=== PATIENT | male | born 2000 | race African-American/Black ===

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

== ENCOUNTER 2021-11-16 16:05 | Inpatient (IN) | payer BC, MEDICAID ==
--- NOTE | 2021-11-16 18:13 | ED ---
Psych HPI - General Chief Complaint: Psychiatric Symptoms Stated Complaint: petition Time Seen by Provider: 11/16/21 17:27 Source: patient, family, police Mode of arrival: ambulatory - History of Present Illness Initial Comments: Patient is a 20-year-old male who presents to the emergency department for psychiatric evaluation. Patient was brought in by his family who do not feel he is acting normal. Patient states for the past few days patient has not been sleeping at night. He has had scattered thoughts and has been more paranoid than normal. Patient denies depression or anxiety. Patient denies suicidal or homicidal ideation. Denies visual and auditory hallucinations. Denies alcohol and drug use. Denies prior history of mental health diagnoses. - Related Data Home Medications Medication Instructions Recorded Confirmed No Known Home Medications 11/16/21 11/17/21 Allergies Allergy/AdvReac Type Severity Reaction Status Date / Time No Known Allergies Allergy Verified 11/17/21 02:36 Review of Systems ROS Statement: Those systems with pertinent positive or pertinent negative responses have been documented in the HPI. ROS Other: All systems not noted in ROS Statement are negative. Past Medical History Past Medical History: No Reported History History of Any Multi-Drug Resistant Organisms: None Reported Past Surgical History: No Surgical Hx Reported Past Psychological History: No Psychological Hx Reported Smoking Status: Current every day smoker Past Alcohol Use History: Occasional Past Drug Use History: Marijuana General Exam Limitations: no limitations General appearance: alert, in no apparent distress Head exam: Present: atraumatic, normocephalic, normal inspection Eye exam: Present: normal appearance, PERRL, EOMI. Absent: scleral icterus, conjunctival injection, periorbital swelling Neck exam: Present: normal inspection. Absent: tenderness, meningismus, lymphadenopathy Respiratory exam: Present: normal lung sounds bilaterally. Absent: respiratory distress, wheezes, rales, rhonchi, stridor Cardiovascular Exam: Present: regular rate, normal rhythm, normal heart sounds. Absent: systolic murmur, diastolic murmur, rubs, gallop, clicks Neurological exam: Present: alert, oriented X3, CN II-XII intact Psychiatric exam: Present: normal affect, normal mood. Absent: flat affect, manic, homicidal ideation, suicidal ideation Skin exam: Present: warm, dry, intact, normal color. Absent: rash Course Vital Signs 07/20/22 07/21/22 16:09 02:57 Temperature 98.8 F Pulse Rate 85 73 Respiratory 20 16 Rate Blood Pressure 159/88 139/78 O2 Sat by Pulse 99 99 Oximetry Medical Decision Making - Medical Decision Making This is a 20-year-old male who presents for psych evaluation. Thorough history and examination were performed. Patient is well-appearing. His family does describe a manic state however patient does not appear manic during my exam. Alcohol breathalyzer is 0. Patient is cleared from a medical standpoint can be evaluated by emergency psychiatric services. Patient admitted to psychiatric floor on 11/17/21. Dr. Sandoval is my attending. - Lab Data Lab Results 11/16/21 11/16/21 11/16/21 Range/Units 18:30 18:30 23:54 Urine Color Brown Urine Appearance Turbid (Clear) Urine pH 6.5 (5.0-8.0) Ur Specific [place] 1.039 H (1.001-1.035) Urine Protein 2+ H (Negative) Urine Glucose (UA) Negative (Negative) Urine Ketones 3+ H (Negative) Urine Blood Negative (Negative) Urine Nitrite Negative (Negative) Urine Bilirubin Negative (Negative) Urine Urobilinogen 4.0 (<2.0) mg/dL Ur Leukocyte Esterase Negative (Negative) Urine WBC 7 H (0-5) /hpf Amorphous Sediment Rare H (None) /hpf Urine Bacteria Few H (None) /hpf Urine Mucus Many H (None) /hpf Urine Opiates Screen Not Detected (NotDetected) Ur Oxycodone Screen Not Detected (NotDetected) Urine Methadone Screen Not Detected (NotDetected) Ur Propoxyphene Screen Not Detected (NotDetected) Ur Barbiturates Screen Not Detected (NotDetected) U Tricyclic Antidepress Not Detected (NotDetected) Ur Phencyclidine Scrn Not Detected (NotDetected) Ur Amphetamines Screen Not Detected (NotDetected) U Methamphetamines Scrn Not Detected (NotDetected) U Benzodiazepines Scrn Not Detected (NotDetected) Urine Cocaine Screen Not Detected (NotDetected) U Marijuana (THC) Screen Detected H (NotDetected) Coronavirus (PCR) Not Detected (Not Detectd) Disposition Clinical Impression: Paranoia, Behavior concern Disposition: ADMITTED IP TO THIS [facility] Condition: Good Decision Time: 16:24
[2021-11-16 18:54] LABS: Amphetamine Screen,Urine Not Detected (NotDetected); Barbiturate Screen,Urine Not Detected (NotDetected); Benzodiazepines Screen,Urine Not Detected (NotDetected); Cocaine Screen,Urine Not Detected (NotDetected); Methadone Screen, Urine Not Detected (NotDetected); Opiate Screen,Urine Not Detected (NotDetected); Oxycodone Screen, Urine Not Detected (NotDetected); Phencyclidine Screen,Urine Not Detected (NotDetected); Tricyclic Antidepressant,Urine Not Detected (NotDetected); Urn Cannabinoid Scrn Detected (NotDetected)
[2021-11-17] MEDS ORDERED: ACETAMINOPHEN TAB 325 MG TAB PO PRN (01:47)
[2021-11-17] MEDS ORDERED: MAGNESIUM HYDROXIDE 2,400 MG/10 ML CUP PO PRN (01:47)
[2021-11-17] MEDS ORDERED: MAG HYDROX/AL HYDROX/SIMETH 30 ML CUP PO PRN (01:47)
[2021-11-17] MEDS ORDERED: ZIPRASIDONE 20 MG VIAL IM STA (01:50)
[2021-11-17] MEDS ORDERED: hydrOXYzine HCL 50 MG/ML 1 ML VIAL IM PRN (01:50)
[2021-11-17] MEDS ORDERED: LORazepam 2 MG/ML INJ IM STA (01:50)
[2021-11-17] MEDS ORDERED: OLANZapine 10 MG VIAL IM PRN (01:51)
[2021-11-17] MEDS ORDERED: OLANZapine 5 MG TAB PO PRN (01:51)
[2021-11-17] MEDS ORDERED: LORazepam 1 MG/0.5 ML VIAL IM STA (01:56)
[2021-11-17 03:35] LABS: Amorphous Sediment,Urine Rare /hpf; Appearance,Urine Turbid (Clear); Bacteria,Urine Few /hpf; Bilirubin,Urine Negative (Negative); Blood,Urine Negative (Negative); Color,Urine Orange; Glucose,Urine (UA) Negative (Negative); Ketones,Urine 3+ (Negative); Leukocyte Esterase,Urine Negative (Negative); Mucus,Urine Many /hpf; Nitrite,Urine Negative (Negative); PH, Urine 6.5 (5.0-8.0); Protein,Urine 2+ (Negative); Specific Gravity,Urine 1.039 (1.001-1.035); WBC,Urine 7 /hpf (0-5)
[2021-11-17] MEDS ORDERED: NICOTINE 14MG/24HR PATCH TRANSDERM SCH (09:00)
[2021-11-17] MEDS ORDERED: ARIPiprazole 10 MG TAB PO STA (11:31)
--- NOTE | 2021-11-17 14:01 | P.HP ---
Psychiatric H&P - . H&P Date: 11/17/21 History & Physical: Allergies Allergy/AdvReac Type Severity Reaction Status Date / Time No Known Allergies Allergy Verified 11/17/21 02:36 Vital Signs Temp 97.6 F 11/17/21 03:30 Pulse 64 11/17/21 03:30 Resp 14 11/17/21 03:30 BP 94/47 11/17/21 03:30 Pulse Ox 97 11/17/21 03:30 FiO2 Intake & Output 11/16/21 11/17/21 11/17/21 18:59 06:59 18:59 Weight 95.254 kg Laboratory Last Values Urine Color [place] 11/16/21 18:30 Urine Appearance Turbid (Clear) 11/16/21 18:30 Urine pH 6.5 (5.0-8.0) 11/16/21 18:30 Ur Specific [place] 1.039 (1.001-1.035) H 11/16/21 18:30 Urine Protein 2+ (Negative) H 11/16/21 18:30 Urine Glucose (UA) Negative (Negative) 11/16/21 18:30 Urine Ketones 3+ (Negative) H 11/16/21 18:30 Urine Blood Negative (Negative) 11/16/21 18:30 Urine Nitrite Negative (Negative) 11/16/21 18:30 Urine Bilirubin Negative (Negative) 11/16/21 18:30 Urine Urobilinogen 4.0 mg/dL (<2.0) 11/16/21 18:30 Ur Leukocyte Esterase Negative (Negative) 11/16/21 18:30 Urine WBC 7 /hpf (0-5) H 11/16/21 18:30 Amorphous Sediment Rare /hpf (None) H 11/16/21 18:30 Urine Bacteria Few /hpf (None) H 11/16/21 18:30 Urine Mucus Many /hpf (None) H 11/16/21 18:30 Urine Opiates Screen Not Detected (NotDetected) 11/16/21 18:30 Ur Oxycodone Screen Not Detected (NotDetected) 11/16/21 18:30 Urine Methadone Screen Not Detected (NotDetected) 11/16/21 18:30 Ur Propoxyphene Screen Not Detected (NotDetected) 11/16/21 18:30 Ur Barbiturates Screen Not Detected (NotDetected) 11/16/21 18:30 U Tricyclic Antidepress Not Detected (NotDetected) 11/16/21 18:30 Ur Phencyclidine Scrn Not Detected (NotDetected) 11/16/21 18:30 Ur Amphetamines Screen Not Detected (NotDetected) 11/16/21 18:30 U Methamphetamines Scrn Not Detected (NotDetected) 11/16/21 18:30 U Benzodiazepines Scrn Not Detected (NotDetected) 11/16/21 18:30 Urine Cocaine Screen Not Detected (NotDetected) 11/16/21 18:30 U Marijuana (THC) Screen Detected (NotDetected) H 11/16/21 18:30 Coronavirus (PCR) Not Detected (Not Detectd) 11/16/21 23:54 11/17/21 14:01 IDENTIFYING DATA: Patient is a single, employed, 20-year-old -[place] male who presents to the hospital for acute psychosis. HPI: Patient presented to the hospital on 11/16/2021, brought into the hospital under petition for an acute change in behaviors and psychotic symptoms. As per petition filled out by his mother, the patient appeared to be grossly disorganized and increasingly paranoid. Collateral information was obtained by his mother who reports that the patient had an acute change in behavior over the last 5 days. The patient has been primarily concerned with his mother cheating on his father with his embroidery supervisor at work. He also believes that his embroidery supervisor at work as well as other coworkers have been attempting to "set him up." The patient does report that he has been receiving special messages from television and the radio. However, the patient is denying any auditory or visual hallucinations. The patient expresses that he began feeling "off" after smoking marijuana and drinking with his friends approximately 3 days ago. The patient did require IM Geodon due to agitation prior to transferring him from the emergency department to the psychiatric unit. In regards to mood symptoms, the patient is not reporting any significant symptoms of depression or anxiety at this time. He is denying any suicidal or homicidal ideation, intention, and/or plan. He does report that he has not been sleeping well over the last 4-5 days and this is confirmed by his mother. However, the patient denies any history of manic episodes. The patient's mother also reports that this the first time the patient has displayed psychotic symptoms. The patient does report significant substance abuse. He states that he has been drinking and smoking marijuana at least 3-4 times per week. He reports that he does so to the point of intoxication. He denies any tobacco use. He reports no other drug use. PAST PSYCHIATRIC HISTORY: Patient states that he has not been previously diagnosed with any mental illness. Patient denies being on any psychiatric medications. Patient denies any previous psychiatric hospitalizations. Patient denies any psychiatric outpatient follow-up. Patient denies any history of suicide attempts in the past. PMH: Past Medical History: No Reported History History of Any Multi-Drug Resistant Organisms: None Reported Past Surgical History: No Surgical Hx Reported Past Psychological History: No Psychological Hx Reported Smoking Status: Current every day smoker - Patient denies Past Alcohol Use History: Occasional Past Drug Use History: Marijuana ALLERGIES: NO KNOWN DRUG ALLERGIES CHEMICAL DEPENDENCY HISTORY: As per HPI FAMILY PSYCHIATRIC/SUBSTANCE USE HISTORY: The patient's mother reports that the family has a significant history of multiple members with schizophrenia and bipolar disorder. SOCIAL HISTORY: Patient was born in [place] and raised in [place]. The patient currently lives with his mother, brother, and father. 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 His hobbies and interests include basketball. He reports some college education. He denies any legal issues. MENTAL STATUS EXAM: General Appearance: Patient appears to be stated age is alert, directable, and attempts to cooperate. Patient appears to have fair hygiene and grooming. Behavior: Patient is seated without any agitated behavior. Eye contact is appropriate. Speech: Patient's speech is fluent and nonpressured. Monotone. Mood/Affect: Patient reports their mood is feeling okay, affect is congruent and constricted. Suicidality/Homicidality: Patient denies any suicidal or homicidal ideation, intention, and/or plan. Perceptions: Patient denies any visual hallucinations and denies any auditory hallucinations Though content/process: The patient reports some paranoia. Thought process a ppears to be more linear and logical today as compared to what has been reported. Memory and concentration: AOX3, grossly intact for the purposes of this session. Can spell "WORLD" backwards Judgment and insight: Fair STRENGTHS/WEAKNESSES: Strength is that the patient is gainfully employed, has no significant psychiatric history, and a supportive family. Weakness is that the patient engages in heavy marijuana use. INTELLECT: average IMPRESSIONS: Brief psychotic episode - suspect secondary to cannabis use Cannabis use disorder Alcohol use disorder PLAN: -Patient is admitted under voluntary status to [facility]HU for stabilization of psychiatric symptoms and safety. Patient signed adult voluntary form and medication consent and is placed in patient's chart. -Medications : Will start patient on Abilify 10 mg by mouth daily for psychosis. Plan is to titrate to 15 mg tomorrow. -Vistaril and Zyprexa PRN for agitation/aggression -Patient was counselled on substance abuse and desired to cut back on use -Patient was informed of the risks, benefits and side effects of the medication and patient verbally consented to taking the medications. Patient signed med consent form and was placed in chart. -Internal Medicine consult to perform medical evaluation and physical. -SW on board for discharge planning. Encourage patient to participate in groups to work on coping skills. 11/17/21 14:01
[2021-11-17] MEDS: MELATONIN 5 MG TABLET PO SCH (21:22)
[2021-11-18] MEDS ORDERED: ARIPiprazole 15 MG TAB PO SCH (09:00)
--- NOTE | 2021-11-18 14:05 | P.PN ---
Progress Note - Text Progress Note Date: 11/18/21 Interval History: Patient was seen wandering the hallways and was directable and agreeable to speak with property underwriter in the office. The patient continues to endorse significant symptoms of paranoia. He does report a belief that others on the unit have been plotting against him. He also displays poor insight and judgment regarding the events leading up to this hospitalization. He firmly believes that he hasn't been psychotic and that if "you knew my family, you would understand why I am here." The patient was reminded that he initially presented to the emergency Department with significant thought blocking, gross disorganization, and paranoia. The patient is inquiring if melatonin alone can be used instead of any antipsychotic medication. He was encouraged to take antipsychotic medication so that the reasons for his admission are addressed. The patient is agreeable at this time. Mental Status Exam: General Appearance: Patient appears to be stated age is alert, directable, and cooperative. Behavior: Patient is calmly seated without any agitated behavior. Speech: Patient's speech is fluent and nonpressured. Mood/Affect: Mood is "feeling better," affect is somewhat guarded and suspicious. Suicidality/Homicidality: Patient denies having any suicidal or homicidal ideation intent or plan. Perceptions: Patient denies any visual hallucinations and denies any auditory hallucinations Though content/process: The patient does endorse some paranoia. Memory and concentration: The patient appears to have poor memory of the events leading up to this hospitalization. Judgment and insight: Poor Vital Signs Temp 98.1 F 11/18/21 07:04 Pulse 107 H 11/18/21 07:04 Resp 18 11/18/21 07:04 BP 188/94 11/18/21 07:04 Pulse Ox 99 11/18/21 07:04 FiO2 Intake & Output 11/17/21 11/18/21 11/18/21 18:59 06:59 18:59 Weight 87.997 kg Assessment Brief psychotic episode - suspect secondary to cannabis use Cannabis use disorder Alcohol use disorder Plan: -Patient continues to meet criteria for inpatient psychiatric admission for symptom stabilization and safety. Patient has signed adult voluntary form and medication consent and was placed in patient's chart. If the patient continues to refuse medications and worsening psychiatric symptoms, we may have to consider petition and recertification. -Medications: Change Abilify to 10 mg by mouth at bedtime for psychosis Continue melatonin 10 mg by mouth at bedtime for insomnia -When necessary Ativan and Geodon for agitation/aggression. -SW on board for discharge planning. Encouraged the patient to participate in milieu.
--- NOTE | 2021-11-18 17:24 | P.MDCNMH ---
History of Present Illness H&P Date: 11/17/21 Chief Complaint: Abnormal behavior Patient is a 20-year-old male without significant past medical history except everyday smoker and marijuana use was brought to the hospital for psychiatric Abely psychiatric evaluation. Psychiatric evaluation. Patient was brought to hospital by his family as he do not feel normal and has not been sleeping at night. Patient has been having paranoid and tangential thoughts. Otherwise denied any suicidal or suicidal ideation. No complaints of chest pain or shortness of air. No fever no chest pain denied any recent illnesses. No nausea vomiting abdominal pain or diarrhea. Denies any dysuria or hematuria. No cough or sputum production. Patient does smoke on daily basis and use marijuana 3 times in a week. Laboratory data not available. UDS is positive for marijuana. Coronavirus PCR not detected. Urinalysis showed increased specific gravity and 2+ protein and 3+ ketones and leukocyte esterase negative. Review of Systems Constitutional: Patient denies any fever or chills . No generalized weakness or weight loss. Abdomen: Patient denied nausea vomiting and diarrhea and abdominal pain. Cardiovascular: Patient denies any chest pain or short of breath no palpitations. Respiratory: patient denied any cough is from production. No shortness of breath Neurologic: Patient denied any numbness or tingling headache. Musculoskeletal: Patient denies any complaints of joint swelling or deformity. Skin: Negative Psychiatric: Negative Endocrine: No heat or cold intolerance. No recent weight gain. Genitourinary: No dysuria or hematuria. All other 14 point ROS negative except the above Past Medical History Past Medical History: No Reported History History of Any Multi-Drug Resistant Organisms: None Reported Past Surgical History: No Surgical Hx Reported Past Psychological History: No Psychological Hx Reported Smoking Status: Current every day smoker Past Alcohol Use History: Occasional Past Drug Use History: Marijuana Medications and Allergies Home Medications Medication Instructions Recorded Confirmed Type No Known Home Medications 11/16/21 11/17/21 History Allergies Allergy/AdvReac Type Severity Reaction Status Date / Time No Known Allergies Allergy Verified 11/17/21 02:36 Physical Exam Vitals: Vital Signs Temp Pulse Pulse Resp BP BP Pulse Ox 11/17/21 03:30 97.6 F 64 14 94/47 97 11/17/21 02:57 73 16 139/78 99 11/16/21 16:09 98.8 F 85 20 159/88 99 Intake and Output 07/11/17/21 11/17/21 22:59 06:59 14:59 Other: Weight 95.254 kg PHYSICAL EXAMINATION: Patient is lying in the bed comfortably, no acute distress, awake alert and oriented.. HEENT: Normocephalic. Neck is supple. Pupils reactive. Nostrils clear. Oral cavity is moist. Neck reveals no JVD, carotid bruits, or thyromegaly. CHEST EXAMINATION: Trachea is central. Symmetrical expansion. Lung sadler clear to auscultation and percussion. CARDIAC: Normal S1, S2 with no gallops. No murmurs ABDOMEN: Soft. Bowel sounds normal. No organomegaly. No abdominal bruits. Extremities: reveal no edema. No clubbing or cyanosis Neurologically awake, alert, oriented x3 with well-coordinated movements. No focal deficits noted Skin: No rash or skin lesions. Psychiatric: Coperative. Nonsuicidal Musculoskeletal: No joint swelling or deformity. Normal range of motion. Cranial Nerve Examination - Cranial Nerves Cranial Nerve I- Olfactory: Intact Cranial Nerve II- Optic: Intact Cranial Nerve III- Oculomotor: Intact Cranial Nerve IV- Trochlear: Intact Cranial Nerve V- Trigeminal: Intact Cranial Nerve - Abducens: Intact Cranial Nerve VII- Facial: Intact Cranial Nerve VIII- Auditory: Intact Cranial Nerve IX- Glossopharyngeal: Intact Cranial Nerve X- Vagus: Intact Cranial Nerve XI- Accessory: Intact Cranial Nerve XII- Hypoglossal: Intact Results Labs: Abnormal Lab Results - Last 24 Hours (Table) 11/16/21 11/16/21 Range/Units 18:30 18:30 Ur Specific [place] 1.039 H (1.001-1.035) Urine Protein 2+ H (Negative) Urine Ketones 3+ H (Negative) Urine WBC 7 H (0-5) /hpf Amorphous Sediment Rare H (None) /hpf Urine Bacteria Few H (None) /hpf Urine Mucus Many H (None) /hpf U Marijuana (THC) Screen Detected H (NotDetected) Assessment and Plan Assessment: Acute psychosis and paranoid behavior. Ongoing nicotine addiction. Marijuana use 2+ protein in the urine DVT prophylaxis early ambulation Plan: Patient will be continued on current psychiatric management and plan. We will follow-up CBC and CMP and lipid profile. Will need repeat urinalysis and follow-up with primary care physician due to proteinuria. Encourage oral intake. Further recommendations based on clinical course. Thank you for your consult. Time with Patient: Greater than 30
[2021-11-18] MEDS: ARIPiprazole 10 MG TAB PO SCH (20:57)
[2021-11-18] MEDS: MELATONIN 5 MG TABLET PO SCH (20:57)
[2021-11-19] MEDS ORDERED: ARIPiprazole 15 MG TAB PO SCH (09:00)
[2021-11-19 09:22] LABS: Basophils # (A) 0.1 k/uL (0-0.2); Basophils % (A) 1 %; Eosinophils # (A) 0.1 k/uL (0-0.7); Eosinophils % (A) 1 %; HGB 15.3 gm/dL (13.0-17.5); Lymphocytes # (A) 2.9 k/uL (1.0-4.8); Lymphocytes % (A) 29 %; MCH 28.3 pg (25.0-35.0); MCHC 30.6 g/dL (31.0-37.0); MCV 92.4 fL (80.0-100.0); Mean Platelet Volume 7.1; Monocytes # (A) 0.5 k/uL (0-1.0); Monocytes % (A) 5 %; Neutrophils # (A) 6.3 k/uL (1.3-7.7); Neutrophils % (A) 64 %; Platelet Count 274 k/uL (150-450); RBC 5.41 m/uL (4.30-5.90); RDW 13.1 % (11.5-15.5); WBC 9.9 k/uL (4.0-11.0)
[2021-11-19 09:41] LABS: ALT 23 U/L (4-49); AST 64 U/L (17-59); African American GFR (CKD) >90 (>60 ml/min/1.73 sqM); Alkaline Phosphatase 89 U/L (38-126); Anion Gap 9 mmol/L; Bilirubin, Delta 0.1 mg/dL (0.0-0.2); Bilirubin,Unconjugated 0.9 mg/dL (0.0-1.1); Blood Urea Nitrogen 10 mg/dL (9-20); Calcium 9.9 mg/dL (8.4-10.2); Carbon Dioxide 27 mmol/L (22-30); Chloride 106 mmol/L (98-107); Glucose 88 mg/dL (74-99); Non-African American GFR(CKD) >90 (>60 ml/min/1.73 sqM); Potassium 4.1 mmol/L (3.5-5.1); Sodium 142 mmol/L (137-145); Total Protein 8.1 g/dL (6.3-8.2)
--- NOTE | 2021-11-19 12:30 | P.PN ---
Progress Note - Text Progress Note Date: 11/19/21 Clinical Problems: Brief psychotic disorder, rule out cannabis induced psychotic disorder, rule out schizophreniform disorder, cannabis use disorder, all call use disorder Interim history: I reviewed the medical record and interviewed the patient. The patient only concern was discharge. He was unable to explain the reason for his hospitalization and did not understand the concerns his family had for his mental health. He had obvious difficulty organizing his thoughts but did not express clear grandiose or delusional beliefs. He complained of sedation following his first dose of Abilify but has been compliant with the medication. He is attending therapeutic groups and activities. He only slept 3 hours last night. He is posed no management problems had no episodes of behavioral dyscontrol. Mental status exam: He presented as a stocky and casually groomed - [place]yanese male who was pleasant on approach. He made eye contact and appeared to attend to the interview. He had no distinguishing features or prominent physical abnormalities. He had a flat facial expression. He was alert and oriented to person, place and time. He showed psychomotor retardation but no abnormal involuntary movements. His speech was not spontaneous and had decreased rate and volume. He had no articulation difficulties. He denied current suicidal ideation and wishes. He denied homicidal ideation. He denied feeling hopeless, helpless or worthless. He showed prominent poverty of thought and content of thought. He appeared guarded and suspicious but did not express clear paranoid, magical or delusional thoughts or beliefs. His thinking was very concrete but his associations appeared to be goal-directed. Assessment: He remains guarded, suspicious paranoid. He is moderately mentally ill and minimally improve from admission. Plan: Continue inpatient treatment. Safety precautions. Continue Abilify 10 mg daily. Olanzapine and or Vistaril IM or when necessary when necessary for agitation, anxiety acute psychosis. Encouraged continued participation in therapeutic groups and activities. Evaluate clinical status response to treatment daily basis.
[2021-11-19 17:24] LABS: Chol/HDL Ratio 2.65 Ratio; LDL Cholesterol,Calculated 87.9 mg/dL (0.0-131.0)
[2021-11-19] MEDS: MELATONIN 5 MG TABLET PO SCH (22:04)
[2021-11-19] MEDS: ARIPiprazole 10 MG TAB PO SCH (22:04)
--- NOTE | 2021-11-20 11:04 | P.PN ---
Progress Note - Text Progress Note Date: 11/20/21 Clinical Problems: Brief psychotic disorder, rule out cannabis induced psychotic disorder, rule out schizophreniform disorder, cannabis use disorder, all call use disorder Interim history: I reviewed the medical record and interviewed the patient. He is more talkative than on her initial encounter. He was struggling to understand the reason for this hospitalization. He vacillated between believing that his family were conspiring against him and believing that they were concerned for his well-being. He spoke more openly about the paranoia he experiences while he was in the community and his ongoing experiences of auditory hallucinations. After our encounter the psychiatry tech asked for order to not allow him to use pens. She stated that yesterday he was writing and scratching his arm with the pen. When she asked him why he is doing this he replied "the voices." He denied side effects to Abilify has been compliant with the prescribed dose. He has not been regularly attending therapeutic groups and activities. Again he only slept 3 hours last night. He has posed no management problems and had no episodes of behavioral dyscontrol. Mental status exam: He presented as a stocky and casually groomed - [place] male who was pleasant on approach. He made eye contact and appeared to attend to the interview. He had no distinguishing features or prominent physical abnormalities. He had a sad facial expression and cried intermittently during the interview. He was alert and oriented to person, place and time. He showed psychomotor retardation but no abnormal involuntary movements. His speech was spontaneous and had decreased rate and volume. He had no art iculation difficulties. He denied current suicidal ideation and wishes. He denied homicidal ideation. He denied feeling hopeless, helpless or worthless. He showed prominent poverty of thought and content of thought. He he was paranoid but did not express paranoid delusions. His thinking was very concrete but his associations appeared to be goal-directed. He denied auditory hallucinations during interview and did not appear to be responding to internal stimuli. Assessment: He remains guarded, suspicious paranoid. He is moderately mentally ill and minimally improve from admission. Plan: Continue inpatient treatment. Safety precautions. Continue Abilify 10 mg daily. Monitor his use of writing instruments. Olanzapine and or Vistaril IM or when necessary when necessary for agitation, anxiety acute psychosis. Encouraged continued participation in therapeutic groups and activities. Evaluate clinical status response to treatment daily basis.
[2021-11-20] MEDS: ARIPiprazole 10 MG TAB PO SCH ×2 (21:15→23:07)
[2021-11-20] MEDS: MELATONIN 5 MG TABLET PO SCH ×2 (21:15→23:07)
[2021-11-21] MEDS ORDERED: WATER FOR INJECTION, STERILE 10 ML IV ONE (05:38)
--- NOTE | 2021-11-21 06:35 | P.MHFACE ---
Face to Face Restrain/Seclus - Evaluation Patient's Immediate Situation: Violent behavior Patient's Reaction to the Intervention: Appropriate, Calm, Relaxed, Cooperative Patient's Medical & Behavioral Condition: Awake, Alert, Follows directions Patient's Medical & Behavioral Condition - Comment: denies any hallucination , denies suicidal or homicidal thoughts Need to Continue or Terminate Restraint or Seclusion: Terminate Face to Face Eval of Restraint Date: 11/21/21 Face to Face Eval of Restraint Time: 06:25
[2021-11-21] MEDS ORDERED: risperiDONE 1 MG TAB PO STA (10:22)
--- NOTE | 2021-11-21 12:32 | P.PN ---
Progress Note - Text Progress Note Date: 11/21/21 Interval History: Patient was seen wandering the hallways and was directable and agreeable to speak with designer writer in his room. Over the weekend, the patient has been refusing medications. Furthermore, the patient has been noted by staff to be increasingly paranoid, responding to internal stimuli, and episodes of agitation. Earlier this morning, at approximately 5 AM, the patient was continually asking for things and expressing a desire to leave. He began to threaten and stating that if he was not going to leave and 5 minutes, he would be very agitated. The patient was unable to be redirected and required the use of restraints and was administered Zyprexa and Vistaril. The patient responded to this and was able to calm down. Upon assessment after, the patient continues to state this provider that he has reasons for why he is in the hospital and that he has proof on his phone. He continues to endorse significant paranoia. However, the patient is agreeable to taking medications today. The patient was informed that if he is to refuse any further medications, that we will pursue a petition clinical certificate. Reportedly, the patient is also not welcome back to his home. Mental Status Exam: General Appearance: Patient appears to be stated age is alert, directable, and cooperative. Behavior: Patient is calmly seated without any agitated behavior. Speech: Patient's speech is fluent and nonpressured. Mood/Affect: Mood is "I feel like there is something going on," affect is somewhat guarded and suspicious. Suicidality/Homicidality: Patient denies having any suicidal or homicidal ideation intent or plan. Perceptions: Patient denies any visual hallucinations and denies any auditory hallucinations Though content/process: The patient does present with paranoia. Memory and concentration: Grossly intact for the purposes of this session. Judgment and insight: Poor Vital Signs Temp 97.9 F 11/21/21 05:55 Pulse 113 H 11/21/21 05:55 Resp 24 11/21/21 05:55 BP 165/71 11/21/21 05:55 Pulse Ox 99 11/20/21 04:40 FiO2 Intake & Output 11/20/21 11/21/21 11/21/21 18:59 06:59 18:59 Weight 88.6 kg Assessment Brief psychotic episode Cannabis use disorder Alcohol use disorder Plan: -Patient continues to meet criteria for inpatient psychiatric admission for symptom stabilization and safety. Patient has signed adult voluntary form and medication consent and was placed in patient's chart. If the patient refuses any medications, we will pursue a petition and clinical certification period -Medications: Start Risperdal 1 mg by mouth twice a day with plans to titrate tomorrow. Continue melatonin 10 mg by mouth at bedtime for insomnia -When necessary Ativan and Geodon for agitation/aggression. -SW on board for discharge planning. Encouraged the patient to participate in milieu.
[2021-11-21] MEDS: hydrOXYzine pamoate 25 MG CAP PO PRN (13:29)
[2021-11-21] MEDS: risperiDONE 1 MG TAB PO SCH (21:16)
[2021-11-21] MEDS: MELATONIN 5 MG TABLET PO SCH (21:16)
[2021-11-22] MEDS: risperiDONE 1 MG TAB PO SCH ×3 (08:16→22:02)
--- NOTE | 2021-11-22 13:05 | P.PN ---
Progress Note - Text Progress Note Date: 11/22/21 Interval History: Patient was seen wandering the hallways and was directable and agreeable to speak with the technical document writer in the office. The patient refused medications this morning. He maintains that he is "okay and ready to go home." He does continue to endorse significant paranoia, especially towards other peers. He reports that he believes that everyone is speaking about him or laughing at him. He continues to have poor insight into why he was admitted into the hospital in the first place. He reports that he has evidence as to why he is here on his phone. He reports that he would like to call 911 in order to report his mother. The patient was informed that he will be petitioned and certified as he has been nonadherent with treatment, displays limited insight, and also displayed violent behavior yesterday. Patient minimizes his agitation yesterday and reports that he is "ready to go home because I'm not angry anymore." Patient is in disagreement with this provider and does not believe he needs any further treatment. He denies any suicidal or homicidal ideation, intention, and/or plan. He is not reporting any auditory or visual hallucinations. Mental Status Exam: General Appearance: Patient appears to be stated age is alert, directable, and cooperative. Behavior: Patient is seated without any agitated behavior. Speech: Patient's speech is fluent and nonpressured. Mood/Affect: Mood is "I don't need to be here," affect is guarded and suspicio us. Suicidality/Homicidality: Patient denies having any suicidal or homicidal ideation intent or plan. Perceptions: Patient denies any visual hallucinations and denies any auditory hallucinations Though content/process: The patient does present with paranoia. Memory and concentration: Grossly intact for the purposes of this session. Judgment and insight: Poor Vital Signs Temp 98.2 F 11/22/21 07:11 Pulse 113 H 11/22/21 07:11 Resp 24 11/21/21 05:55 BP 185/95 11/22/21 07:11 Pulse Ox 99 11/20/21 04:40 FiO2 Assessment Brief psychotic episode Cannabis use disorder Alcohol use disorder Plan: -Patient continues to meet criteria for inpatient psychiatric admission for symptom stabilization and safety. Patient has signed adult voluntary form and medication consent and was placed in patient's chart. -We will pursue a petition and clinical certification due to nonadherence with treatment. -Medications: Continue risperdal 1 mg twice daily for psychosis. Continue melatonin 10 mg by mouth at bedtime for insomnia -When necessary Ativan and Geodon for agitation/aggression. -SW on board for discharge planning. Encouraged the patient to participate in milieu.
[2021-11-22] MEDS: MELATONIN 5 MG TABLET PO SCH (22:02)
[2021-11-23] MEDS: risperiDONE 1 MG TAB PO SCH ×2 (09:07→21:31)
--- NOTE | 2021-11-23 11:07 | P.PN ---
Progress Note - Text Progress Note Date: 11/23/21 Interval History: Patient was seen wandering the hallways and was directable and agreeable to speak with the music writer in the office. The patient continues to refuse medications. He states randomly to this provider "I see the connections you guys are making. The patients with pens and the patients with no pens." When asked to elaborate the patient abruptly states, "forget about it. It's nothing." He reports he is not paranoid today although acknowledges that he believes his mother has sent patients here to the psychiatric unit to spy on him. Yesterday the patient informed staff he wanted to call 911 against his mother whom he believes has murdered someone. The patient is otherwise not reporting any auditory or visual hallucinations. He reports no suicidal or homicidal ideation, intention, and/or plan. He denies any issues regarding his sleep or appetite. Mental Status Exam: General Appearance: Patient appears to be stated age is alert, directable, and cooperative. Behavior: Patient is seated without any agitated behavior. Speech: Patient's speech is fluent and nonpressured. Mood/Affect: Mood is "I'm not paranoid. I'm ready to go." Affect is blunted and suspicious. Suicidality/Homicidality: Patient denies having any suicidal or homicidal ideation intent or plan. Perceptions: Patient denies any visual hallucinations and denies any auditory hallucinations Though content/process: The patient does present with paranoia. He appears more disorganized today. Memory and concentration: Grossly intact for the purposes of this session. Judgment and insight: Poor Vital Signs Temp 97.3 F L 11/23/21 08:29 Pulse 90 11/23/21 08:29 Resp 18 11/23/21 08:29 BP 144/78 11/23/21 08:29 Pulse Ox 98 11/23/21 08:29 FiO2 Assessment Brief psychotic episode Cannabis use disorder Alcohol use disorder Plan: -Patient continues to meet criteria for inpatient psychiatric admission for symptom stabilization and safety. Patient has signed adult voluntary form and medication consent and was placed in patient's chart. -We will pursue a petition and clinical certification due to nonadherence with treatment. Patient is refusing the medications at this time. -Medications: Continue risperdal 1 mg twice daily for psychosis. Continue melatonin 10 mg by mouth at bedtime for insomnia -When necessary Ativan and Geodon for agitation/aggression. -SW on board for discharge planning. Encouraged the patient to participate in milieu.
[2021-11-24] MEDS: MELATONIN 5 MG TABLET PO SCH ×2 (02:31→21:24)
[2021-11-24] MEDS: risperiDONE 1 MG TAB PO SCH ×2 (09:01→21:24)
--- NOTE | 2021-11-24 10:18 | P.PN ---
Progress Note - Text Progress Note Date: 11/24/21 Interval History: Patient was seen wandering the hallways and was directable and agreeable to speak with the manual writer in the office. The patient was adherent with his medications last night and this morning. Today, the patient is not reporting any overt paranoid symptoms. He expresses a desire for discharge and is upset to find out that discharge is determined by this provider. He states he wishes to file his own petition so that he can petition the court for discharge. He was explained the mental health court process many times and had trouble comprehending what was said and instead continued to repeat that he wanted to file his own petition since this provider is able to file his own papers. The patient was informed of the intention to go up on medications. He expresses to this provider he does not want to go up on any medications or take any medications in general. He continues to endorse very limited insight stating that he is not paranoid or psychotic but has been just "learning how things go in the psychiatric unit." He denies any suicidal or homicidal ideation, intention, and/or plan. He reports no auditory or visual hallucinations. Mental Status Exam: General Appearance: Patient appears to be stated age is alert, directable, and cooperative. Behavior: Patient is seated without any agitated behavior. Speech: Patient's speech is fluent and nonpressured. Mood/Affect: Mood is "I'm okay." Affect is blunted. Suicidality/Homicidality: Patient denies having any suicidal or homicidal ideation intent or plan. Perceptions: Patient denies any visual hallucinations and denies any auditory hallucinations Though content/process: Denies overt paranoid delusions. Mild disorganization. Ruminative. Memory and concentration: Grossly intact for the purposes of this session. Judgment and insight: Poor Vital Signs Temp 97.9 F 11/24/21 05:37 Pulse 103 H 11/24/21 05:37 Resp 16 11/24/21 05:37 BP 167/99 11/24/21 05:37 Pulse Ox 98 11/23/21 08:29 FiO2 Assessment Brief psychotic episode Cannabis use disorder Alcohol use disorder Plan: -Patient continues to meet criteria for inpatient psychiatric admission for symptom stabilization and safety. Patient has signed adult voluntary form and medication consent and was placed in patient's chart. -We will pursue a petition and clinical certification due to nonadherence with treatment. Patient is refusing the medications at this time. -Medications: Increase risperdal to 2 mg twice daily for psychosis. Continue melatonin 10 mg by mouth at bedtime for insomnia -When necessary Ativan and Geodon for agitation/aggression. -SW on board for discharge planning. Encouraged the patient to participate in milieu.
[2021-11-25] MEDS: risperiDONE 1 MG TAB PO SCH ×2 (09:00→20:10)
--- NOTE | 2021-11-25 13:39 | P.PN ---
Progress Note - Text Progress Note Date: 11/25/21 Interval History: Patient was seen wandering the hallways and was directable and agreeable to speak with the conventional underwriter in the office. The patient has been in adherent with his medications. Currently, patient is not reporting any suicidal or homicidal ideation, intention, and/or plan. He is not reporting any auditory or visual hallucinations. He is denying any paranoia or other delusions. The patient expresses an intention to defer mental health court. He has been adherent with his medications and is not endorsing any significant side effect aside from mild feelings of sedation. He is not endorsing any significant paranoia to this provider today. Mental Status Exam: General Appearance: Patient appears to be stated age is alert, directable, and cooperative. Behavior: Patient is seated without any agitated behavior. Speech: Patient's speech is fluent and nonpressured. Mood/Affect: Mood is "alright." Affect is constricted. More range of affect today compared to yesterday. Suicidality/Homicidality: Patient denies having any suicidal or homicidal ideation intent or plan. Perceptions: Patient denies any visual hallucinations and denies any auditory hallucinations Though content/process: No delusional thought content is endorse today. More linear and logical conversation today. Memory and concentration: Grossly intact for the purposes of this session. Judgment and insight: Mildly improving Vital Signs Temp 97.1 F L 11/25/21 06:43 Pulse 103 H 11/25/21 06:43 Resp 16 11/25/21 06:43 BP 145/92 11/25/21 06:43 Pulse Ox 98 11/23/21 08:29 FiO2 Assessment Brief psychotic episode Cannabis use disorder Alcohol use disorder Plan: -Patient continues to meet criteria for inpatient psychiatric admission for symptom stabilization and safety. -The patient has been petitioned and certified. He is scheduled for deferral later this otherwise court is scheduled for December 07. -Medications: Continue Risperdal 2 mg twice daily for psychosis. Continue melatonin 10 mg by mouth at bedtime for insomnia -When necessary Ativan and Geodon for agitation/aggression. -SW on board for discharge planning. Encouraged the patient to participate in milieu.
[2021-11-25] MEDS: MELATONIN 5 MG TABLET PO SCH (20:10)
[2021-11-26] MEDS: risperiDONE 1 MG TAB PO SCH ×2 (08:01→20:30)
--- NOTE | 2021-11-26 10:36 | P.PN ---
Subjective Progress Note Date: 11/26/21 Principal diagnosis: Brief reactive psychosis Cannabis and alcohol use disorder Subjective: The patient admits to "moods" he says there periods of time where he is too happy and this causes trouble he might say things without thinking spend impulsively start projects and then move on to better projects. These episodes of then often followed by depression or by anger. He says that it seems to be calming down a little on the Risperdal. He was having a little trouble taking ownership saying "they say I have a chemical imbalance" however he did admit to mood swings. He says that he has used alcohol to try to control and in the past but only during certain moods and most of the time he does not drink. Objective good eye contact reasonable response times, oriented, stays on topic, denies suicidality or homicidality or psychotic symptoms. He is alert and cooperative he got right up and came to talk to me. He is on risperidone twice a day. Assessment: He is tolerating his medication well with some early benefit no signs of akathisia no EPS no constipation dry mouth or blurred vision. Plan: No change at this time I did a lot of educating as to what he has to do to be stable with his illness besides taking medications Objective - Vital Signs Vital signs: Vital Signs Temp 96.8 F L 11/26/21 04:15 Pulse 100 11/26/21 04:15 Resp 14 11/26/21 04:15 BP 145/75 11/26/21 04:15 Pulse Ox 98 11/23/21 08:29 FiO2 - Labs CBC & Chem 7: 11/19/21 08:59 11/19/21 08:59
[2021-11-26] MEDS: MELATONIN 5 MG TABLET PO SCH (20:30)
[2021-11-27 07:00] VITALS: RESP 16
[2021-11-27] MEDS: risperiDONE 1 MG TAB PO SCH ×2 (08:22→20:28)
--- NOTE | 2021-11-27 08:24 | P.PN ---
Subjective Progress Note Date: 11/27/21 Principal diagnosis: Brief reactive psychosis Cannabis and alcohol use disorder Subjective: He had an interesting insight that negative information hits him more strongly than it usually does he says it's one of the moods he tends to fluctuate in and he gave as an example the negatives on the evening knows. He is tolerating his risperidone well no akathisia no muscle cramps no constipation dizziness blurred vision and dry mouth. Objective: good eye contact reasonable response times, oriented, stays on topic, denies suicidality or homicidality or psychotic symptoms. He is alert and cooperative. He is on risperidone twice a day. Assessment: He is tolerating his medication well with some early benefit no signs of akathisia no EPS no constipation dry mouth or blurred vision. Plan: No change at this time I did a lot of educating as to what he has to do to be stable with his illness besides taking medications Objective - Vital Signs Vital signs: Vital Signs Temp 97.1 F L 11/27/21 06:20 Pulse 89 11/27/21 06:20 Resp 16 11/27/21 06:20 BP 144/87 11/27/21 06:20 Pulse Ox 98 11/23/21 08:29 FiO2 - Labs CBC & Chem 7: 11/19/21 08:59 11/19/21 08:59
[2021-11-27] MEDS: MELATONIN 5 MG TABLET PO SCH (20:28)
[2021-11-27] MEDS: hydrOXYzine pamoate 25 MG CAP PO PRN (23:16)
[2021-11-28] MEDS: risperiDONE 1 MG TAB PO SCH ×2 (08:02→21:05)
[2021-11-28] MEDS ORDERED: PALIPERIDONE IM 234 MG/1.5 ML SYG IM STA (10:02)
--- NOTE | 2021-11-28 11:09 | P.PN ---
Progress Note - Text Progress Note Date: 11/28/21 Interval History: Patient was seen resting in bed and was agreeable to speak with clinical writer in his room. Currently, the patient is not reporting any suicidal or homicidal ideation, intention, and/or plan. He is not reporting any auditory or visual hallucinations. As per discussion with staff, the patient had an uneventful weekend. His sister came to visit during visiting hours and it went well. The patient reports no significant paranoia or bizarre delusions today. He has been adherent with his medications and is not reporting any significant side effects. Although he is desiring not replace on the injectable, he is willing to take the medication if "he has to." He was informed that it is the recommended standard practice for first break psychosis and given the patient's history of nonadherence with treatment, it is safer to do so. He otherwise reports no i ssues with sleep or his appetite. Mental Status Exam: General Appearance: Patient appears to be stated age is alert, directable, and cooperative. Behavior: Patient is seated without any agitated behavior. Speech: Patient's speech is fluent and nonpressured. Mood/Affect: Mood is "doing okay." Affect is constricted. Suicidality/Homicidality: Patient denies having any suicidal or homicidal idea tion intent or plan. Perceptions: Patient denies any visual hallucinations and denies any auditory hallucinations Though content/process: No delusional thought content is endorse today. Linear and logical in short conversation Memory and concentration: Grossly intact for the purposes of this session. Judgment and insight: Mildly improving Vital Signs Temp 97.9 F 11/28/21 06:20 Pulse 78 11/28/21 06:20 Resp 16 11/28/21 06:20 BP 149/85 11/28/21 06:20 Pulse Ox 98 11/23/21 08:29 FiO2 Intake & Output 11/27/21 11/28/21 11/28/21 18:59 06:59 18:59 Weight 89.5 kg Assessment Brief psychotic episode Cannabis use disorder Alcohol use disorder Plan: -Patient continues to meet criteria for inpatient psychiatric admission for symptom stabilization and safety. -The patient has been petitioned and certified. Patient deferred mental health court. -Medications: Start Invega 234 mg IM today. Discontinue oral Risperdal. Continue melatonin 10 mg by mouth at bedtime for insomnia -When necessary Ativan and Geodon for agitation/aggression. -SW on board for discharge planning. Encouraged the patient to participate in milieu.
[2021-11-28] MEDS: MELATONIN 5 MG TABLET PO SCH (21:05)
[2021-11-29] MEDS: risperiDONE 1 MG TAB PO SCH (08:45)
[2021-11-29] MEDS ORDERED: PALIPERIDONE IM 234 MG/1.5 ML SYG IM STA (09:35)
[2021-11-29 12:13] VITALS: BMI 27.5
--- NOTE | 2021-11-29 13:28 | P.PN ---
Progress Note - Text Progress Note Date: 11/29/21 Interval History: Patient was seen resting in bed and was agreeable to speak with property underwriter in the office. Patient continues to have limited insight as to the reasons for his admission as well as his diagnosis and symptoms. He continues to report that he is just undergoing significant emotional distress and is not experiencing any psychotic symptoms. He downplays his history of psychosis and his symptoms that he presented while he was here. He is however denying any suicidal or homicidal ideation, intention, and/or plan. He is denying any auditory or visual hallucinations. He reports no overt paranoid delusions today. He refused long- acting injectable medication yesterday however is in agreement today if it would facilitate his discharge and if he "has to." He was reminded that he did defer mental health court and if he wishes to challenge the treatment plan, he may exercise his right to go to mental health Court and plead his case. Mental Status Exam: General Appearance: Patient appears to be stated age is alert, directable, and cooperative. Behavior: Patient is seated without any agitated behavior. Speech: Patient's speech is fluent and nonpressured. Mood/Affect: Mood is "I think I don't need any medications anymore." Affect is constricted. Suicidality/Homicidality: Patient denies having any suicidal or homicidal ideation intent or plan. Perceptions: Patient denies any visual hallucinations and denies any auditory hallucinations Though content/process: No delusional thought content is endorse today. Linear and logical in short conversation Memory and concentration: Grossly intact for the purposes of this session. Judgment and insight: Poor Vital Signs Temp 98.1 F 11/29/21 07:12 Pulse 93 11/29/21 07:12 Resp 16 11/28/21 06:20 BP 140/67 11/29/21 07:12 Pulse Ox 98 11/23/21 08:29 FiO2 Intake & Output 11/28/21 11/29/21 11/29/21 18:59 06:59 18:59 Weight 89.5 kg Assessment Brief psychotic episode Cannabis use disorder Alcohol use disorder Plan: -Patient continues to meet criteria for inpatient psychiatric admission for symptom stabilization and safety. -The patient has been petitioned and certified. Patient deferred mental health court. -Medications: Start Risperdal Consta 25 mg IM today. Patient refused his Invega yesterday. Continue melatonin 10 mg by mouth at bedtime for insomnia -When necessary Ativan and Geodon for agitation/aggression. -SW on board for discharge planning. Encouraged the patient to participate in milieu.
[2021-11-29] MEDS: MELATONIN 5 MG TABLET PO SCH (20:32)
[2021-11-30 06:56] VITALS: BP 140/80; PULSE 69; TEMP 98.2
--- NOTE | 2021-11-30 14:17 | P.DS ---
Providers Date of admission: 11/17/21 01:45 Expected date of discharge: 11/30/21 Attending physician: Gokul Hernandez MD Consults: 11/17/21 01:47 Consult Physician Routine Consulting Provider: Edvin Blank Consult Reason/Comments: For H & P for Medical Follow Up Do you want consulting provider notified?: Yes, Notify in am Primary care physician: Albert Hilliard - Discharge Diagnosis(es) (1) Brief psychotic disorder Status: Acute Priority: High (2) Cannabis use disorder Status: Chronic Priority: Medium Hospital Course: Admission HPI: Patient is a single, employed, 20-year-old -[place] male who presents to the hospital for acute psychosis. Patient presented to the hospital on 11/16/2021, brought into the hospital under petition for an acute change in behaviors and psychotic symptoms. As per petition filled out by his mother, the patient appeared to be grossly disorganized and increasingly paranoid. Collateral information was obtained by his mother who reports that the patient had an acute change in behavior over the last 5 days. The patient has been primarily concerned with his mother cheating on his father with his customer service supervisor at work. He also believes that his customer service supervisor at work as well as other coworkers have been attempting to "set him up." The patient does report that he has been receiving special messages from television and the radio. However, the patient is denying any auditory or visual hallucinations. The patient expresses that he began feeling "off" after smoking marijuana and drinking with his friends approximately 3 days ago. The patient did require IM Geodon due to agitation prior to transferring him from the emergency department to the psychiatric unit. In regards to mood symptoms, the patient is not reporting any significant symptoms of depression or anxiety at this time. He is denying any suicidal or homicidal ideation, intention, and/or plan. He does report that he has not been sleeping well over the last 4-5 days and this is confirmed by his mother. However, the patient denies any history of manic episodes. The patient's mother also reports that this the first time the patient has displayed psychotic symptoms. The patient does report significant substance abuse. He states that he has been drinking and smoking marijuana at least 3-4 times per week. He reports that he does so to the point of intoxication. He denies any tobacco use. He reports no other drug use. Patient states that he has not been previously diagnosed with any mental illness. Patient denies being on any psychiatric medications. Patient denies any previous psychiatric hospitalizations. Patient denies any psychiatric outpatient follow-up. Patient denies any history of suicide attempts in the past. Hospital course: Upon admission to the unit patient was initially endorsing significant paranoia, disorganization, and very poor insight. Patient was however directable and agreeable to commence treatment. Patient got along well with other patients on the unit and followed unit protocol. Patient was compliant with the medications and denied any side effects throughout hospital course. Patient was started on Abilify. Initially, the patient displayed significant improvement with this medication however became nonadherent believing that he had no reason to take medication and was in disagreement with his diagnosis. The patient was initially offered the ability to sign in voluntarily however the treatment team had 2 petition and certify him due to his nonadherence with treatment and his continued psychotic symptoms of paranoia, disorganization, and very limited insight. Over the course of hospitalization, the patient was intermittently adherent with his medications and he was eventually transitioned to Risperdal with the plan to transition him to a long-acting injectable medication due to his history of nonadherence. The patient was eventually agreeable to taking the medications. Once he was adherent with the medication, the patient displayed a significant improvement in regards to his target psychotic symptoms. He tolerated the medication well aside from mild sedation. The patient was eventually transitioned to Risperdal Consta. He initially refused injectable medication however it was highly recommended to him as part of his deferral due to his history of nonadherence with medications while on the unit. The patient to come injectable on 11/29/2021 and tolerated the medication well and reported no side effects. On the day of discharge, the patient is not reporting any suicidal or homicidal ideation, intention, and/or plan. He is not reporting any auditory or visual hallucinations. He is denying any paranoia or other delusions. Patient denies any side effects of his medications. The patient was counseled at length on the points of medication adherence and appropriate outpatient follow-up. He was reminded that he has to receive his next dose of Risperdal Consta in 2 weeks. The patient was also reminded that he is under deferral status and that if he is nonadherent with the treatment, he can be brought back to the psychiatric unit. The patient does have a significant history of cannabis use and was counseled at great length on importance of abstaining from marijuana and sick and deathly contributed to psychotic symptoms. As additional longer met criteria for continued inpatient psychiatric hospitals addition, he was subsequently discharged. Mental status exam: General Appearance: Patient appears to be stated age is alert, pleasant, and cooperative. Patient is in no acute distress and has fair hygiene and grooming Behavior: Patient is calmly seated without any agitated behavior. Speech: Patient's speech is fluent and nonpressured. Mood/Affect: Patient reports their mood is "feeling good", affect is congruent and euthymic. Suicidality/Homicidality: Patient denies having any suicidal or homicidal ideation intent or plan. Perceptions: Patient denies any auditory or visual hallucinations. Though content/process: There is no evidence of any delusional thought content and thought process is linear and goal-directed. Patient appears to be future oriented. Memory and concentration: AOX3, grossly intact for the purposes of this session. Can spell "WORLD" backwards correctly. Judgment and insight: Improved with guarded prognosis Impression: Brief psychotic episode Cannabis use disorder Alcohol use disorder Plan: -Continue with discharge today as patient has improved and stabilized psychiatrically and is not currently an imminent threat to himself and/or others. Patient will remain at chronically elevated risk due to his lack of insight and his cannabis use. -Continue medications: Risperdal Consta 25 mg IM was administered on 11/29/2021. His next dose is due on 12/13/2021. -Patient was counseled on the need for medication compliance and appropriate follow-up at mental health and also primary care for medical issues. Patient verbalized understanding and agreed. -Social work to arrange for and conduct family meeting to ensure safety upon discharge and answer any questions/concerns. Social work also to arrange for patients follow up appointments with [facility] for psychiatric care along with follow up with primary care provider. -Patient counseled on abstaining from recreational drugs and marijuana and alcohol. Was informed/educated on the adverse effects on their physical and mental health. Patient verbally agreed and understood]. -Patient was instructed to return to the hospital or seek immediate medical care if their psychiatric or medical symptoms do worsen or reoccur. -Psychoeducation and supportive therapy provided to patient. Risks and benefits of pharmacological treatment versus the risks and benefits of nontreatment weight and discussed. Informed consent discussion held. Common side effects of psychotropics discussed such as, but not limited to headache, GI disturbance, sexual dysfunction, movement disorders, sedation, and orthostatic hypotension. Life threatening and blackbox warnings of prescribed medications also discussed. Potential risks of operating a vehicle or heavy machinery discussed with patient at length. Advised on importance of compliance and a reliable and responsible manner. Patient advised to review FDA consumer labeling of all medications prior to taking. Patient verbalized understanding of potential risks, and agrees with current treatment plan. Patient advised to medically contact physician/emergency personnel if any acute changes in condition occur. Vital Signs Temp 98.2 F 11/30/21 06:46 Pulse 69 11/30/21 06:46 Resp 16 11/30/21 06:46 BP 140/80 11/30/21 06:46 Pulse Ox 98 11/23/21 08:29 FiO2 Intake & Output 11/29/21 11/30/21 11/30/21 18:59 06:59 18:59 Weight 89.5 kg Laboratory Results WBC 9.9 k/uL (4.0-11.0) 11/19/21 08:59 RBC 5.41 m/uL (4.30-5.90) 11/19/21 08:59 Hgb 15.3 gm/dL (13.0-17.5) 11/19/21 08:59 Hct 50.0 % (39.0-53.0) 11/19/21 08:59 MCV 92.4 fL (80.0-100.0) 11/19/21 08:59 MCH 28.3 pg (25.0-35.0) 11/19/21 08:59 MCHC 30.6 g/dL (31.0-37.0) L 11/19/21 08:59 RDW 13.1 % (11.5-15.5) 11/19/21 08:59 Plt Count 274 k/uL (150-450) 11/19/21 08:59 MPV 7.1 11/19/21 08:59 Neutrophils % 64 % 11/19/21 08:59 Lymphocytes % 29 % 11/19/21 08:59 Monocytes % 5 % 11/19/21 08:59 Eosinophils % 1 % 11/19/21 08:59 Basophils % 1 % 11/19/21 08:59 Neutrophils # 6.3 k/uL (1.3-7.7) 11/19/21 08:59 Lymphocytes # 2.9 k/uL (1.0-4.8) 11/19/21 08:59 Monocytes # 0.5 k/uL (0-1.0) 11/19/21 08:59 Eosinophils # 0.1 k/uL (0-0.7) 11/19/21 08:59 Basophils # 0.1 k/uL (0-0.2) 11/19/21 08:59 Sodium 142 mmol/L (137-145) 11/19/21 08:59 Potassium 4.1 mmol/L (3.5-5.1) 11/19/21 08:59 Chloride 106 mmol/L (98-107) 11/19/21 08:59 Carbon Dioxide 27 mmol/L (22-30) 11/19/21 08:59 Anion Gap 9 mmol/L 11/19/21 08:59 BUN 10 mg/dL (9-20) 11/19/21 08:59 Creatinine 1.00 mg/dL (0.66-1.25) 11/19/21 08:59 Est GFR (CKD-EPI)AfAm >90 (>60 ml/min/1.73 sqM) 11/19/21 08:59 Est GFR (CKD-EPI)NonAf >90 (>60 ml/min/1.73 sqM) 11/19/21 08:59 Glucose 88 mg/dL (74-99) 11/19/21 08:[address] Glu mg/dL 105 11/19/21 08:59 Hemoglobin A1c 5.3 % (0.0-6.0) 11/19/21 08:59 Calcium 9.9 mg/dL (8.4-10.2) 11/19/21 08:59 Total Bilirubin 1.0 mg/dL (0.2-1.3) 11/19/21 08:59 Conjugated Bilirubin 0.0 mg/dL (0.0-0.3) 11/19/21 08:59 Unconjugated Bilirubin 0.9 mg/dL (0.0-1.1) 11/19/21 08:59 Delta Bilirubin 0.1 mg/dL (0.0-0.2) 11/19/21 08:59 AST 64 U/L (17-59) H 11/19/21 08:59 ALT 23 U/L (4-49) 11/19/21 08:59 Alkaline Phosphatase 89 U/L (38-126) 11/19/21 08:59 Total Protein 8.1 g/dL (6.3-8.2) 11/19/21 08:59 Albumin 5.0 g/dL (3.5-5.0) 11/19/21 08:59 Triglycerides 58.50 mg/dL (0.00-149.00) 11/19/21 08:59 Cholesterol 160.00 mg/dL (0.00-200.00) 11/19/21 08:59 LDL Cholesterol, Calc 87.9 mg/dL (0.0-131.0) 11/19/21 08:59 VLDL Cholesterol, Calc 11.70 mg/dL (5.00-40.00) 11/19/21 08:59 HDL Cholesterol 60.40 mg/dL (40.00-60.00) H 11/19/21 08:59 Cholesterol/HDL Ratio 2.65 Ratio 11/19/21 08:59 TSH 0.642 mIU/L (0.465-4.680) 11/19/21 08:59 Urine Color Loving 11/16/21 18:30 Urine Appearance Turbid (Clear) 11/16/21 18:30 Urine pH 6.5 (5.0-8.0) 11/16/21 18:30 Ur Specific [place] 1.039 (1.001-1.035) H 11/16/21 18:30 Urine Protein 2+ (Negative) H 11/16/21 18:30 Urine Glucose (UA) Negative (Negative) 11/16/21 18:30 Urine Ketones 3+ (Negative) H 11/16/21 18:30 Urine Blood Negative (Negative) 11/16/21 18:30 Urine Nitrite Negative (Negative) 11/16/21 18:30 Urine Bilirubin Negative (Negative) 11/16/21 18:30 Urine Urobilinogen 4.0 mg/dL (<2.0) 11/16/21 18:30 Ur Leukocyte Esterase Negative (Negative) 11/16/21 18:30 Urine WBC 7 /hpf (0-5) H 11/16/21 18:30 Amorphous Sediment Rare /hpf (None) H 11/16/21 18:30 Urine Bacteria Few /hpf (None) H 11/16/21 18:30 Urine Mucus Many /hpf (None) H 11/16/21 18:30 Urine Opiates Screen Not Detected (NotDetected) 11/16/21 18:30 Ur Oxycodone Screen Not Detected (NotDetected) 11/16/21 18:30 Urine Methadone Screen Not Detected (NotDetected) 11/16/21 18:30 Ur Propoxyphene Screen Not Detected (NotDetected) 11/16/21 18:30 Ur Barbiturates Screen Not Detected (NotDetected) 11/16/21 18:30 U Tricyclic Antidepress Not Detected (NotDetected) 11/16/21 18:30 Ur Phencyclidine Scrn Not Detected (NotDetected) 11/16/21 18:30 Ur Amphetamines Screen Not Detected (NotDetected) 11/16/21 18:30 U Methamphetamines Scrn Not Detected (NotDetected) 11/16/21 18:30 U Benzodiazepines Scrn Not Detected (NotDetected) 11/16/21 18:30 Urine Cocaine Screen Not Detected (NotDetected) 11/16/21 18:30 U Marijuana (THC) Screen Detected (NotDetected) H 11/16/21 18:30 Coronavirus (PCR) Not Detected (Not Detectd) 11/16/21 23:54 Allergies Allergy/AdvReac Type Severity Reaction Status Date / Time No Known Allergies Allergy Verified 11/17/21 02:36 Patient Condition at Discharge: Stable Plan - Discharge Summary Discharge Rx Participant: No New Discharge Prescriptions: New risperiDONE MICROSPHERES [RisperDAL Consta] 25 mg IM Q14D #1 each Melatonin 10 mg PO HS PRN 30 Days tab PRN Reason: Insomnia Discharge Medication List Melatonin 10 mg PO HS PRN 30 Days tab 11/30/21 [Rx] risperiDONE MICROSPHERES [RisperDAL Consta] 25 mg IM Q14D #1 each 11/30/21 [Rx] Follow up Appointment(s)/Referral(s): [facility] [Outside] - 12/06/21 12:00 pm (with [facility]) Albert Hilliard DO [Primary Care Provider] - 1 Week Patient Instructions/Handouts: Psychotic Disorder (DC) Activity/Diet/Wound Care/Special Instructions: Avoid the use of street drugs and alcohol. Take all prescriptions as prescribed. When you are in need of refills on your medications, please contact your medical provider and/or outpatient psychiatrist to have this done. Please go to scheduled outpatient appointment for aftercare treatment. If symptoms return or become worse, call the crisis line at and/or go to the nearest emergency room for evaluation. Discharge Disposition: HOME SELF-CARE
== END 2021-11-30 11:10 | disposition home or self-care (01) | DRG 885 ==
LOC: EC 16:05 → 3MHU 11-17 01:45
PROVIDERS: ADMIT Psychiatry & Neurology Psychiatry; ATTEND Psychiatry & Neurology Psychiatry
DX: F23 Brief psychotic disorder (principal); F10.10 Alcohol abuse, uncomplicated; Z91.128 Patient's intentional underdosing of medication regimen for other reason; Z20.822 Contact with and (suspected) exposure to COVID-19; F12.10 Cannabis abuse, uncomplicated; G47.00 Insomnia, unspecified; F17.210 Nicotine dependence, cigarettes, uncomplicated; Z71.6 Tobacco abuse counseling; T50.916A Underdosing of multiple unspecified drugs, medicaments and biological substances, initial encounter; Z78.1 Physical restraint status; Z71.41 Alcohol abuse counseling and surveillance of alcoholic; Z71.51 Drug abuse counseling and surveillance of drug abuser; Y92.230 Patient room in hospital as the place of occurrence of the external cause; Z81.8 Family history of other mental and behavioral disorders
CPT/HCPCS: 80053; 80061; 80306; 81001; 82075; 82248; 83036; 84443; 85025; 87635; 96372; 99285

== ENCOUNTER → 2022-03-20 | Outpatient (CLI) | payer BC, MEDICAID ==
--- NOTE | 2022-03-20 14:45 | XR ---
EXAMINATION TYPE: XR finger RT DATE OF EXAM: 03/20/2022 2:16 PM INDICATION: Patient age:Male; 21 years old; Reason for study: S63.610A UNSPECIFIED SPRAIN OF RIGHT THUMB; COMPARISON: None TECHNIQUE: Frontal, lateral and oblique views of the second digit of the right hand was obtained. FINDINGS: Minimally displaced acute volar plate avulsion fracture of the middle phalanx of the second digit at its base visualized on the lateral view. There is associated soft tissue edema. No dislocat ion. No radiopaque foreign bodies. IMPRESSION: Minimally displaced acute volar plate avulsion fracture of the middle phalanx of the second digit of the right hand.
== END | disposition home or self-care (01) ==
LOC: RADXRMAIN 14:00
PROVIDERS: ATTEND Family Medicine
DX: S62.620A Displaced fracture of middle phalanx of right index finger, initial encounter for closed fracture (principal); S63.601A Unspecified sprain of right thumb, initial encounter